=== PATIENT | male | born 1965 | race Caucasian/White ===

== ENCOUNTER 2023-10-05 08:02 | Outpatient (REF) | payer OTHER, SELFPAY ==
--- NOTE | ~2023-10-05 | MM_ITS ---
EXAMINATION: BONE DENSITOMETRY CLINICAL INDICATION: Hypogonadism. COMPARISON: This is the patient's baseline examination. TECHNIQUE: Using a [employer] DXA System (software version: 13.1) manufactured by [employer], dual-energy x-ray absorptiometry was performed of the lumbar spine and left hip. The images are of good technical quality. Summary results are attached. FINDINGS: AP SPINE L1-L2 (excluding L3 and L4): The data of L1-L4 has been changed to exclude the L3 and L4 vertebral bodies, because degenerative sclerosis at these levels may cause overestimation of lumbar spine density. BMD 0.939 g/cm2, Z-score -2.5, T-score -2.2, osteopenia. LEFT FEMUR, NECK: BMD 1.015 g/cm2, Z-score 0.0, T-score -0.4, normal. LEFT FEMUR, TOTAL: BMD 1.096 g/cm2, Z-score 0.0, T-score 0.0, normal. IDENTIFIED RISK FACTORS: Low calcium intake, recurrent falls, alcohol (3 or more units per day), secondary osteoporosis (hypogonadism). HISTORY OF FRACTURE: None listed. MEDICATIONS: Vitamin D. MM/XR DEXA axial skeleton IMPRESSION: 1. DIAGNOSIS: Osteopenia based on the lowest T-score value of -2.2 in the lumbar spine applying World Health Organization criteria. 2. 10-YEAR FRACTURE RISK PREDICTION, FRAX: Major osteoporotic fracture (clinical spine, forearm, hip or shoulder) 5.2%. Hip fracture 0.3%. 3. Treatment Recommendations: NOF guidelines recommend consideration for treatment in postmenopausal women and men age 50 and older presenting with the following: -A hip or vertebral (clinical or morphometric) fracture. -T-score less than or equal to -2.5 at the femoral neck or spine after appropriate evaluation to exclude secondary causes. -Low bone mass at the hip or spine and a 10-year fracture probability by FRAX of greater than or equal to 3% for hip fracture or greater than or equal to 20% for major osteoporotic fracture based on the [place] adapted WHO algorithm. 4. Other Recommendations: All treatment decisions require clinical judgment and consideration of individual patient factors, including patient preferences, comorbidities, previous drug use, risk factors not captured in the FRAX model (e.g. frailty, falls, vitamin D deficiency, increased bone turnover, interval significant decline in bone density) and possible under or overestimation of fracture risk by FRAX. Additional medical evaluation for secondary cause of low bone mineral density may be appropriate. FUTURE SCAN RECOMMENDATION: People with diagnosed cases of osteoporosis or at high risk for fracture should have regular bone mineral density tests. For patients eligible for Medicare, routine testing is allowed once every 2 years. The testing frequency can be increased to one year for patients who have rapidly progressing disease, those who are receiving or discontinuing medical therapy to restore bone mass, or have additional risk factors.
== END 2023-10-05 08:03 | disposition home or self-care (01) ==
LOC: HO.MAMMO 08:02
PROVIDERS: PCP Family Medicine; Visit Provider Internal Medicine Endocrinology, Diabetes & Metabolism
DX: Z13.820 Encounter for screening for osteoporosis (principal); E29.1 Testicular hypofunction; M85.852 Other specified disorders of bone density and structure, left thigh
CPT/HCPCS: 77080

== ENCOUNTER 2025-04-10 12:48 | Outpatient (REF) | payer OTHER, SELFPAY ==
--- NOTE | ~2025-04-10 | US_ITS ---
CLINICAL HISTORY: TESTICULAR SWELLING US Scrotum with Doppler Comparison: None provided Findings: Right testicle normal echotexture, 1.7 x 1.1 x 1.4 cm. Scattered right testicular calcifications. Right appendix testes noted measuring 2 mm Left testicle normal echotexture, 1.4 x 0.8 x 1.3 cm. Scattered left testicular calcifications. Normal color flow and arterial/venous spectral tracing of both testicles. Small cyst in the right epididymal head measuring 0.4 x 0.5 x 0.3 cm. Tiny cyst left epididymal head measuring up to 2 mm. No varicoceles. No hydroceles. IMPRESSION: No evidence of torsion. 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 This document has been electronically signed by: Tres Sparks MD on 04/10/2025 19:17:42
--- OUTSIDE RECORDS SUMMARY | 2025-04-10 16:57 | XMS_ITS | Encounter Summary ---
Author Organization [facility] Address [address] [place] [id number] Phone Care Team Providers Care Excel Specialist Name Role Phone Laura Alexandra Laverne [facility] Primary Care Provider [phone] Laura Alexandra Laverne [facility] Primary Care Provider [phone] Encounter Details Date Type Department Care Team (Late st Contact Info) Description 07/15/2021 Procedure [facility] [address] [place] [address] Social History Tobacco Use Types Packs/Day Years Used Date Smoking Tobacco: Former Cigarettes 0 12/07/1992 - 11/14/1999 Smokeless Tobacco: Never Alcohol Use Standard Drinks/Week Comments Not Currently 0 (1 standard drink = 0.6 oz pur e alcohol) Child or Family Care Answer Date Record ed Do you have problems with on e of the following making it difficult for you to work, study, or receive health care? No 07/14/2021 Education Answer Date Recorded Are you interested in help w ith more adult education (for example, completing high school, GED, job training, learning the [place] language, technical skills, or developing parenting skills)? No 07/14/2021 Are you concerned about learning? Not on file 07/14/2021 Not on file 07/14/2021 Not on file 07/14/2021 Food Answer Date Recorded Within the past 6 months we worried whether our food would run out before we got money to buy more. Never True 07/14/2021 Within the past 6 months the food we bought just didn't last and we didn't have enough money to get more. Never True Paying for Meds Answer Date Recorded Do you have trouble paying for medicines? No 07/14/2021 Paying Utility Bills Answer Date Record ed Do you have trouble paying your heating or elect ricity bill? No 07/14/2021 Transportation Answer Date Recorded Has the lack of transportati on kept you from medical appointments or from getting medications? No 07/14/2021 Sex and Gender Information Value Date Recorded Sex Assigned at Male 11/02/2020 9:00 AM EDT Legal Sex Male 5:04 PM EST Gender Identity Male 11/02/2020 9:00 AM EDT Sexual Orientation Queer 07/05/2022 9: 54 AM EST documented as of this encounter Functional Status * Calculated C-SSRS Risk Score (Lifetime/Recent) Answer Date of Assessment Author Moderate Risk 07/15/2021 4:17 PM Douglas Hunt RN * [place] Suicide Severity Rating Scale (Screener/Recent Self-Report) Question Answer Date of Assessment Author 1. Wish to be (Past 1 Month) Yes 021 4:17 PM Leonila Hunt RN 2. Non-Specific Active Suici iwona Thoughts (Past 1 Month) Yes 07/15/2021 4:17 PM Leonila Hunt RN 3. Active Suicidal Ideation with any Methods (Not Plan) Without Intent to Act (Past 1 Month) No 07/15/2021 4:17 PM Leonila Hunt R N 4. Active Suicidal Ideation with Some Intent to Act, Without Specific Plan (Past 1 Month) No 07/15/2021 4:17 PM Leonila Hunt R N 5. Active Suicidal Ideation with Specific Plan and Intent (Past 1 Month) No 07/15/2021 4:17 PM Leonila Hunt R N 6. Suicidal Behavior (Lifetime) Yes 4:17 PM Leonila Hunt RN 6. Suicidal Behavior (3 Months) No 4:17 PM Leonila Hunt RN documented as of this encounter Plan of Treatment Upcoming Encounters Date Type Department Care Team (Late st Contact Info) Description 07/07/2025 8:00 AM EST Office Visit [facility] [address], [address] [place] [address] Baron Asher MD [address], [address] [place] [address] documented as of this encounter Visit Diagnoses Not on filedocumented in this encounter Additional Health Concerns Infection Onset Date Last Indicated Resolved Time CoV-Risk Comment:2 neg covid and cxr clear 07/14/2021 07/14/20212020 11:12 AM EST CoV-Risk Comment:Per note documentation 08/08/2024 08/08/2024 9:53 AM EST Assessment Noted Time PHQ-2 Depression Total Score: 0 07/14/20 21 9:28 AM EST documented as of this encounter Care Teams Excel Specialist Relationship Specialty Start Date End Date Laura Alexandra FNP [address] [place] [address] [email or web address] PCP - General Family Medicine 02/12/19 02/26/23 Laura Alexandra FNP [address] [place] [address] [email or web address] PCP - General Family Medicine 02/27/23 documented as of this encounter Additional Source Comments The information contained in this document represents components of the legal health record. It is not the complete legal health record.[facility]
--- OUTSIDE RECORDS SUMMARY | 2025-04-10 16:57 | XMS_ITS | Encounter Summary ---
Author Organization [facility] Address [address] [place] [address] Phone Care Team Providers Care Corporate Treasurer Name Role Phone Laura Alexandra [facility] Primary Care Provider [phone] Encounter Details Date Type Department Care Team ([facility] st Contact Info) Description 04/17/2023 Procedure Pass [facility] [address] [place] [address] Social History Tobacco Use Types Packs/Day Years Used Date Smoking Tobacco: Former Cigarettes 1 7 0 12/07/1992 - 11/14/1999 Smokeless Tobacco: Never Alcohol Use Standard Drinks/Week Comments Not Currently 0 (1 standard drink = 0.6 oz pur e alcohol) Child or Family Care Answer Date Record ed Do you have problems with on e of the following making it difficult for you to work, study, or receive health care? No 08/17/2021 Education Answer Date Recorded Are you interested in help w ith more adult education (for example, completing high school, GED, job training, learning the [place] language, technical skills, or developing parenting skills)? No 08/17/2021 Are you concerned about learning? Not on file 08/17/2021 No 08/17/2021 Yes 08/17/2021 Food Answer Date Recorded Within the past 6 months we worried whether our food would run out before we got money to buy more. Never True 08/17/2021 Within the past 6 months the food we bought just didn't last and we didn't have enough money to get more. Never True Residential Stability Answer Date Recor ded What is your housing situation today? I have keyur art 08/17/2021 How many times have you move d in the past 12 months? Zero (I did not move) 08/17/2021 Paying for Meds Answer Date Recorded Do you have trouble paying for medicines? No 08/17/2021 Paying Utility Bills Answer Date Record ed Do you have trouble paying your heating or elect ricity bill? No 08/17/2021 Transportation Answer Date Recorded Has the lack of transportati on kept you from medical appointments or from getting medications? No 08/17/2021 Unemployment Answer Date Recorded Are you currently unemployed or working on a part-time or temporary basis, and looking for work? No 08/17/2021 Digital Access Answer Date Recorded No 12/20/2022 No 12/20/2022 Reliable internet access at home? Not on file 12/20/2022 Device with a working camera? Not on file Sex and Gender Information Value Date Recorded Sex Assigned at Male 11/02/2020 9:00 AM EDT Legal Sex Male 5:04 PM EST Gender Identity Male 11/02/2020 9:00 AM EDT Sexual Orientation Queer 07/05/2022 9: 54 AM EST documented as of this encounter Plan of Treatment Upcoming Encounters Date Type Department Care Team (Late st Contact Info) Description 07/07/2025 8:00 AM EST Office Visit [facility] [address] [place] [address] [address]rd Floor, [address] [place] [address] Baron Asher MD [address] [place] [address] [email or web address] documented as of this encounter Visit Diagnoses Not on filedocumented in this encounter Additional Health Concerns Infection Onset Date Last Indicated Resolved Time CoV-Risk Comment:Per note documentation 08/08/2024 08/08/2024 5 9:53 AM EST Assessment Noted Time PHQ-2 Depression Total Score: 0 08/17/19 22 8:14 AM EST documented as of this encounter Care Teams Corporate Treasurer Relationship Specialty Start Date End Date Laura Alexandra FNP [address] [place] [address] [address] [place] [address] [email or web address] PCP - General Family Medicine 02/27/23 documented as of this encounter Additional Source Comments The information contained in this document represents components of the legal health record. It is not the complete legal health record.[facility]
--- OUTSIDE RECORDS SUMMARY | 2025-04-10 16:57 | XMS_ITS | Clinical Summary ---
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 Performing Organization Address City/[facility] Co de Phone Number [address] [address] from Last 3 Months or Most Recently Relevant to Health Maintenance Insurance [facility] POS EPO [id number] [place], [place] [address]O POS EPO [id number] [place], [place] [address] POS EPO [id number] [place], [place] [address] POS EPO [id number] POS EPO [id number] [place] [address] POS EPO WORKERS COMPENSATION Advance Directives For more information, please contact: [phone] (9AM - 5PM 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 07/15/2021 Healthcare Proxy * Full Code (Latest Code Status on File) Date Activated Date Inactivated Comments 01/10/2025 11:08 AM Question Answer Comments Code Status Confirmed With: Patient * Full Code Date Activated Date Inactivated Comments 08/07/2024 10:53 PM 01/10/2025 11:08 AM Question Answer Comments Code Status Confirmed With: Patient * Full Code Date Activated Date Inactivated Comments 07/14/2021 11:30 PM 08/07/2024 10:53 PM Question Answer Comments Code Status Confirmed With: Patient Healthcare Agents on File Name Relationship Healthcare Agent Relationshi p Communication Reji Sanchez Brother .Primary Health Care Agent (Proxy form on file) Care Teams Director Of Alumni Relations Relationship Specialty Start Date End Date Laura Alexandra FNP [address] [place] [address] [address] [place] [address] [email or web address] PCP - General Family Medicine 02/27/23 Additional Source Comments The information contained in this document represents components of the legal health record. It is not the complete legal health record.[facility]
--- OUTSIDE RECORDS SUMMARY | 2025-04-10 16:57 | XMS_ITS | Encounter Summary ---
Author Organization [facility] Address [address] [facility] [address] [place] [address] Phone Care Team Providers Care Oxygen Therapy Technician Name Role Phone Laura Alexandra INDIVIDUAL SMALL GROUP INSTRUCTOR Primary Care Provider [phone] Encounter Details Date Type Department Care Team (Late st Contact Info) Description 01/10/2025 Procedure Pass [place] Admitting Dept - Virtual Department [address] [place] [address] Social History Tobacco Use Types Packs/Day Years Used Date Smoking Tobacco: Former Cigarettes 1 7 0 12/07/1992 - 11/14/1999 Smokeless Tobacco: Never Alcohol Use Standard Drinks/Week Comments Never 0 [...] housing situation today? I have keyur art 08/07/2024 How many times have you move [...] Score (Lifetime/Recent) Answer Date of Assessment Author No Risk Indicated 01/10/2025 11:51 AM EDT Arielle Myels RN * [place] Suicide Severity Rating Scale (Screener/Recent Self-Report) Question Answer Date of Assessment Author 1. Wish to be (Past 1 Month) No 025 11:51 AM EDT Arielle Myles, RN 2. Non-Specific Active Suici iwona Thoughts (Past 1 Month) No 01/10/2025 11:51 AM EDT Toma Myles, RN 6. Suicidal Behavior (Lifetime) No 11:51 AM EDT Arielle Myles, RN documented as of this encounter Plan of Treatment Upcoming Encounters Date Type Department Care Team (Late st Contact Info) Description 07/07/2025 8:00 AM EST Office Visit [facility] [address] [place] [address] 3rd Floor, [address] [place], [place] [id number] Baron Asher MD [address] [facility] [address] [place] [address] [email or web address] documented as of this encounter Visit Diagnoses Not on filedocumented in this encounter Additional Health Concerns Assessment Noted Time PHQ-2 Depression Total Score: 0 08/17/19 22 8:14 AM EST documented as of this encounter Care Teams Oxygen Therapy Technician Relationship Specialty Start Date End Date Laura Alexandra FNP [address] [place] [address] [address] [place] [address] PCP - General Family Medicine 02/27/23 documented as of this encounter Additional Source Comments The information contained in this document represents components of the legal health record. It is not the complete legal health record.[facility]
--- OUTSIDE RECORDS SUMMARY | 2025-04-10 16:57 | XMS_ITS | Encounter Summary ---
Author Organization [facility] Address [address] [place] [address] Phone Care Team Providers Care Big Data Lead Name Role Phone Laura Alexandra LINDA Primary Care Provider [phone] Encounter Details Date Type Department Care Team (Late st Contact Info) Description 08/07/2024 Procedure Pass [facility], [facility] [address] [place] [address] Social History Tobacco Use Types Packs/Day Years [...] as food, clothing, or medical care? No 08/07/2024 In the past 12 months have y ou been in a relationship with a person who hurts, threatens, or tries to control you? No 08/07/2024 Are you denied basic needs s uch as food, clothing, or medical care? No 08/07/2024 In the past 12 months have y ou been in a relationship with a person who hurts, threatens, or tries to control you? No 08/07/2024 Sex and Gender Information Value Date Recorded Sex Assigned at Male 11/02/2020 9:00 AM EDT Legal Sex Male 5:04 PM EST Gender Identity Male 11/02/2020 9:00 AM EDT Sexual Orientation Queer 07/05/2022 9: 54 AM EST documented as of this encounter Functional Status * Calculated C-SSRS Risk Score (Lifetime/Recent) Answer Date of Assessment Author No Risk Indicated 08/07/2024 2:23 PM Danielle Martinez RN * [place] Suicide Severity Rating Scale (Screener/Recent Self-Report) Question Answer Date of Assessment Author 1. Wish to be (Past 1 Month) No 08/07/2024 2:23 PM Danielle Villa RN 2. Non-Specific Active Suicidal Thoughts (Past 1 Month) No 08/07/2024 2:23 PM EST Danielle Anderson RN 6. Suicidal Behavior (Lifetime) No 08/07/2024 2:23 PM EST Danielle Anderson RN documented as of this encounter Plan of Treatment Upcoming Encounters Date Type Department Care Team (Late st Contact Info) Description 07/07/2025 8:00 AM EST Office Visit [facility] [address] [facility] 3rd Floor, [address] [place] [address] Baron Asher MD [address] [facility], [address] [place] [address] [email or web address] documented as of this encounter Visit Diagnoses Not on filedocumented in this encounter Additional Health Concerns Infection Onset Date Last Indicated Resolved Time CoV-Risk Comment:Per note documentation 08/08/2024 08/08/2024 5 9:53 AM EST Assessment Noted Time PHQ-2 Depression Total Score: 0 08/17/19 22 8:14 AM EST documented as of this encounter Care Teams Big Data Lead Relationship Specialty Start Date End Date Laura Alexandra FNP [address] [place] [address] 7 [place] [address] [email or web address] PCP - General Family Medicine 02/27/23 documented as of this encounter Additional Source Comments The information contained in this document represents components of the legal health record. It is not the complete legal health record.[facility]
--- OUTSIDE RECORDS SUMMARY | 2025-04-10 16:57 | XMS_ITS | Encounter Summary ---
Author Organization [facility] Address [address] [facility] [address] [place] [address] Phone Care Team Providers Care Dimension Stone Quarry Supervisor Name Role Phone Laura Alexandra Laverne [facility] Primary Care Provider [phone] Laura Alexandra December [facility] Primary Care Provider [phone] Encounter Details Date Type Department Care Team (Late st Contact Info) Description 03/16/2021 Procedure Pass Non-Invasive Cardiology [address] [place] [address] Social History Tobacco Use Types Packs/Day Years Used Date Smoking Tobacco: Former Cigarettes 0 12/07/1992 - 11/14/1999 Smokeless Tobacco: Never Alcohol Use Standard Drinks/Week Comments Not Currently 0 (1 standard drink = 0.6 oz pur e alcohol) Sex and Gender Information Value Date Recorded Sex Assigned at Male 11/02/2020 9:00 AM EDT Legal Sex Male 5:04 PM EST Gender Identity Male 11/02/2020 9:00 AM EDT Sexual Orientation Queer 07/05/2022 9: 54 AM EST documented as of this encounter Plan of Treatment Upcoming Encounters Date Type Department Care Team (Late Contact Info) Description 07/07/2025 8:00 AM EST Office Visit [facility] [address], [address] [place] [address] Baron Asher MD [address] [facility], [address] [place] [address] documented as of this encounter Visit Diagnoses Not on filedocumented in this encounter Additional Health Concerns Infection Onset Date Last Indicated Resolved Time CoV-Risk Comment:2 neg covid and cxr clear 07/14/2021 07/14/20212020 11:12 AM EST CoV-Risk Comment:Per note documentation 08/08/2024 08/08/2024 9:53 AM EST documented as of this encounter Care Teams Dimension Stone Quarry Supervisor Relationship Specialty Start Date End Date Laura Alexandra FNP [address] [facility] [address] [place] [address] [email or web address] PCP - General Family Medicine 02/12/19 02/26/23 Laura Alexandra FNP [address] [facility] 7 [place] [address] [email or web address] PCP - General Family Medicine 02/27/23 documented as of this encounter Additional Source Comments The information contained in this document represents components of the legal health record. It is not the complete legal health record.[facility]
== END 2025-04-10 12:49 | disposition home or self-care (01) ==
LOC: HO.US 12:48
PROVIDERS: PCP Family Medicine; Visit Provider Internal Medicine
DX: N50.89 Other specified disorders of the male genital organs (principal)
CPT/HCPCS: 76870

== ENCOUNTER → 2025-04-10 13:12 | Outpatient (BNV) | payer OTHER, SELFPAY | PROVIDERS: PCP Family Medicine; Visit Provider Radiology Diagnostic Radiology | DX: N49.2 Inflammatory disorders of scrotum (principal) | CPT/HCPCS: 76870 ==